=== PATIENT | male | born 1985 | race African-American/Black ===

== ENCOUNTER 2023-06-25 12:40 | Outpatient (CLI) | payer BC, SELFPAY | END 2023-06-25 12:41 | disposition home or self-care (01) | LOC: AMB 06-26 12:33 | PROVIDERS: Visit Provider Emergency Medicine | DX: I46.9 Cardiac arrest, cause unspecified (principal) | CPT/HCPCS: A0425; A0433 ==

== ENCOUNTER 2023-06-25 13:00 | Emergency (ER) | payer BC, SELFPAY ==
[2023-06-25] VITALS (52 sets, daily range): BP systolic 96–137; BP diastolic 66–90; PULSE 61–105; RESP 16; TEMP 36.2; O2SAT 94–100; BMI 21.5
--- NOTE | 2023-06-25 | CRLHL7_ITS ---
For Patients: As a result of the Cures Act, medical imaging exams and procedure reports are released immediately into your electronic medical record. You may view this report before your referring provider. If you have questions, please contact your health care provider. INDICATION: Cardiac arrest. TECHNIQUE: Chest 1 views. COMPARISON: None. FINDINGS: Cardiovasculature and mediastinum: Heart size and vasculature are normal in caliber and appearance. Lungs and pleural spaces: Lungs are clear. No sign of infiltrate or mass. No sign of pleural effusion. No pneumothorax. Bones and soft tissues: No significant findings. IMPRESSION: No acute or significant findings. Dictated by Richie Burgos MD @ 06/25/2023 2:46:50 PM (Electronically Signed)
[2023-06-25 13:21] LABS: Basophils Percent Auto 0.1 % (0.0-3.0); Eosinophils Percent Auto 0.6 % (0.0-7.0); Hemoglobin* 15.5 gm/dL (13.5-17.5); Immature Granulocytes Pct Auto 0.3 %; Lymphocytes Percent Auto 17.2 % (20-44); Mean Corpuscular HGB Conc 32 gm/dL (32-36); Mean Corpuscular Hemoglobin 32 pg (26-34); Mean Corpuscular Volume 98 fL (80-100); Monocytes Percent Auto 5.6 % (0.0-11.0); Neutrophils Percent Auto 76.2 % (42.0-72.0); Platelet Count* 467 K/uL (140-440); RDW Coefficient of Variation % 12.3 % (11.5-15.5); Red Blood Count 4.92 m/uL (4.30-5.90); White Blood Count* 13.48 K/uL (4.50-11.00)
[2023-06-25 13:22] LABS: Slide Review Reflex No
[2023-06-25] MEDS: 0.9 % SODIUM CHLORIDE 1000 ml 1,000 ML IV (13:29)
[2023-06-25 13:36] LABS: Albumin* 4.2 g/dL (3.3-5.0); Chloride* 101 mmol/L (96-114); Potassium* 3.9 mmol/L (3.6-5.1); Sodium* 139 mmol/L (135-149)
--- NOTE | 2023-06-25 13:37 | ED.NURSE ---
CPR performed in the field by EMS for approximately 4 minutes. Pt awake and alert upon arrival. A/O x 3 on arrival. Pt reporting chest pain in sternal area from CPR. 20G IV placed in right AC. VS stable on arrival. 1L via NC in place for oxygenation and comfort. Officer Scar attempted to speak to patient after initial assessments. Pt stated he was tired and didn't feel like talking. Brochure left in room by Officer Scar for patient to view when able to d/c. Pt denied taking drugs presently but stated he took one hit off of a smokable drug prior to being found down in his home. Per Officer Scar, pt is known to police for hx of drug use. Pt currently resting. This screen writer present in room for 1:1 assessment of need for additional Narcan administration.
[2023-06-25 13:38] LABS: Creatinine* 1.2 mg/dL (0.5-1.5); Est. Creatinine Clearance* 66.28; Estimated Glomerular Filt Rate 79 ml/min
[2023-06-25 13:39] LABS: Alanine Aminotransferase* 67 U/L (4-50); Alkaline Phosphatase* 68 U/L (40-150); Anion Gap 12 mEq/L (7-15); Aspartate Amino Transferase* 61 U/L (12-35); Bilirubin Total* 0.2 mg/dL (0.1-1.5); Blood Urea Nitrogen* 19 mg/dL (5-24); Calcium* 8.8 mg/dL (8.4-10.6); Carbon Dioxide* 26 mmol/L (20-32); Glucose* 233 mg/dL (60-115); Total Protein* 7.1 g/dL (6.0-8.3)
[2023-06-25 13:43] LABS: Salicylate* < 1.0 mg/dL (1.0-10)
[2023-06-25 13:56] LABS: Troponin I* < 0.01 ng/mL (0.01-0.04)
--- NOTE | 2023-06-25 14:41 | ED.NURSE ---
1:1 video monitoring continues to be in place. Pt resting comfortably at this time. 1L NS infused. VS continue to be stable. Pt calm and cooperative. Will continue to monitor and assess.
[2023-06-25 14:42] LABS: Lactate* 1.5 mmol/L (0.5-1.9)
[2023-06-25 14:48] LABS: Acetaminophen* < 10.0 ug/mL (10.0-30.0); Ethanol* < 0.01 % (0.01-0.03)
--- NOTE | 2023-06-25 14:50 | ED.GENADULT ---
HPI - General Adult General Date Seen: 06/25/23 Chief complaint: Cardiac Arrest/CPR Stated complaint: OD, cardiac arrest Time Seen by Provider: 06/25/23 13:08 Source: patient, EMS and old records reviewed Mode of arrival: EMS Limitations: altered mental status History of Present Illness HPI narrative: Patient is a 38-year-old male brought in by EMS after cardiac arrest related to suspected drug use. His brother called 911, and told paramedics that he thought he had used Heroin or fentanyl. He was given sequential doses of 1 mg of Narcan by paramedics. Estimated CPR time was 4 minutes, paramedics reported there was no recommended shock. After 3 doses of Narcan he resume breathing and CPR was discontinued. On arrival to the ER, medics said that he had refused IV, refused blood glucose testing, was awake and otherwise cooperative. Patient initially denied having use any drugs. He did tell me that he had ?taken a hit of something, but would not specify what. He does have a history he says remotely of heroin use but does not use it regularly. He did not believe that he had used any opioids today. He complains of chest pain. Related Data Home Medications Medication Instructions Recorded Confirmed No Known Home Medications 06/25/23 06/25/23 Allergies Allergy/AdvReac Type Severity Reaction Status Date / Time No Known Allergies Allergy Verified 01/16/22 08:28 Review of Systems Status of ROS: Reports: 10 or more systems reviewed and unremarkable except as noted in History and below [facility] Medical History Encounter for screening for COVID-19 ?Z11.52 - Encounter for screening for COVID-19 (ICD-10) Social History Smoking Status: Current every day smoker What tobacco products do you use: cigarettes Do you use any of these nicotine containing products: None Second hand tobacco smoke exposure: No How often do you have a drink containing alcohol: monthly or less AUDIT-C Alcohol total score: 1 Non-prescribed substance use: amphetamines/methamphetamines and opiods/painkillers service: No Exam Narrative: Exam Narrative: Vital signs as noted above. In general, an alert, nontoxic male. Head: Normocephalic, atraumatic. Eyes: Pupils are equal reactive. Extraocular movements are full. Conjunctivae are normal. ENT: Mucous membranes are moist. Throat is normal. Neck: Supple without lymphadenopathy. Heart: Regular rate and rhythm. No murmur or rub. Lungs: Clear bilaterally. No increased work of breathing, crackles or wheezes. Abdomen: Soft and nontender. No organomegaly. Extremities: Well perfused. No edema. No calf tenderness. Pulses intact. Neurologic: Patient is alert and oriented to person and place. Speech is fluent. Face is symmetric. Moves all extremities equally. Affect: Normal. Skin: Warm and dry. Well perfused. I do not see obvious track medina. Const: Vital Signs, click to edit/add: Vital Signs - 24 hr 06/25/23 13:08 06/25/23 13:14 06/25/23 13:32 Temperature 97.1 F L Pulse Rate Pulse Rate [Right Pulse Oximeter] 101 H Respiratory Rate 16 Blood Pressure Blood Pressure [Ri ght Upper Arm] 137/90 H Pulse Oximetry 97 94 Oxygen Delivery Me thod Room Air Oxygen Flow Rate 1 06/25/23 13:33 06/25/23 13:34 06/25/23 13:35 Temperature Pulse Rate 78 79 79 Pulse Rate [Right Pulse Oximeter] Respiratory Rate Blood Pressure 119/82 115/82 Blood Pressure [Ri ght Upper Arm] Pulse Oximetry 97 97 97 Oxygen Delivery Me thod Oxygen Flow Rate 06/25/23 13:36 06/25/23 13:40 06/25/23 13:41 Temperature Pulse Rate 77 81 79 Pulse Rate [Right Pulse Oximeter] Respiratory Rate Blood Pressure 114/80 Blood Pressure [Ri ght Upper Arm] Pulse Oximetry 97 97 97 Oxygen Delivery Me thod Oxygen Flow Rate 06/25/23 13:42 06/25/23 13:45 06/25/23 13:46 Temperature Pulse Rate 79 77 77 Pulse Rate [Right Pulse Oximeter] Respiratory Rate Blood Pressure 111/79 Blood Pressure [Ri ght Upper Arm] Pulse Oximetry 97 97 97 Oxygen Delivery Me thod Oxygen Flow Rate 06/25/23 13:50 06/25/23 13:51 06/25/23 13:55 Temperature Pulse Rate 76 105 H 73 Pulse Rate [Right Pulse Oximeter] Respiratory Rate Blood Pressure 111/78 Blood Pressure [Ri ght Upper Arm] Pulse Oximetry 97 96 97 Oxygen Delivery Me thod Oxygen Flow Rate 06/25/23 13:56 06/25/23 14:00 06/25/23 14:01 Temperature Pulse Rate 76 73 76 Pulse Rate [Right Pulse Oximeter] Respiratory Rate Blood Pressure 107/71 108/66 Blood Pressure [Ri ght Upper Arm] Pulse Oximetry 97 97 97 Oxygen Delivery Me thod Oxygen Flow Rate 06/25/23 14:05 06/25/23 14:06 06/25/23 14:10 Temperature Pulse Rate 69 72 70 Pulse Rate [Right Pulse Oximeter] Respiratory Rate Blood Pressure 102/70 Blood Pressure [Ri ght Upper Arm] Pulse Oximetry 100 100 99 Oxygen Delivery Me thod Oxygen Flow Rate 06/25/23 14:11 06/25/23 14:15 06/25/23 14:16 Temperature Pulse Rate 69 65 68 Pulse Rate [Right Pulse Oximeter] Respiratory Rate Blood Pressure 104/68 100/75 Blood Pressure [Ri ght Upper Arm] Pulse Oximetry 99 99 99 Oxygen Delivery Me thod Oxygen Flow Rate 06/25/23 14:17 06/25/23 14:20 06/25/23 14:21 Temperature Pulse Rate 68 71 73 Pulse Rate [Right Pulse Oximeter] Respiratory Rate Blood Pressure 101/72 Blood Pressure [Ri ght Upper Arm] Pulse Oximetry 99 98 98 Oxygen Delivery Me thod Oxygen Flow Rate 06/25/23 14:25 06/25/23 14:26 06/25/23 14:30 Temperature Pulse Rate 69 72 64 Pulse Rate [Right Pulse Oximeter] Respiratory Rate Blood Pressure 97/70 Blood Pressure [Ri ght Upper Arm] Pulse Oximetry 97 98 98 Oxygen Delivery Me thod Oxygen Flow Rate 06/25/23 14:31 06/25/23 14:35 06/25/23 14:36 Temperature Pulse Rate 64 64 68 Pulse Rate [Right Pulse Oximeter] Respiratory Rate Blood Pressure 104/70 104/72 Blood Pressure [Ri ght Upper Arm] Pulse Oximetry 99 98 98 Oxygen Delivery Me thod Oxygen Flow Rate 06/25/23 14:37 06/25/23 14:40 06/25/23 14:41 Temperature Pulse Rate 70 64 72 Pulse Rate [Right Pulse Oximeter] Respiratory Rate Blood Pressure 101/71 Blood Pressure [Ri ght Upper Arm] Pulse Oximetry 98 98 98 Oxygen Delivery Me thod Oxygen Flow Rate 06/25/23 14:46 06/25/23 14:47 06/25/23 14:50 Temperature Pulse Rate 77 67 64 Pulse Rate [Right Pulse Oximeter] Respiratory Rate Blood Pressure 104/74 Blood Pressure [Ri ght Upper Arm] Pulse Oximetry 97 97 97 Oxygen Delivery Me thod Oxygen Flow Rate 06/25/23 14:51 06/25/23 14:55 06/25/23 14:56 Temperature Pulse Rate 62 62 66 Pulse Rate [Right Pulse Oximeter] Respiratory Rate Blood Pressure 96/68 101/70 Blood Pressure [Ri ght Upper Arm] Pulse Oximetry 97 97 97 Oxygen Delivery Me thod Oxygen Flow Rate 06/25/23 15:00 06/25/23 15:01 06/25/23 15:05 Temperature Pulse Rate 69 64 63 Pulse Rate [Right Pulse Oximeter] Respiratory Rate Blood Pressure 100/74 Blood Pressure [Ri ght Upper Arm] Pulse Oximetry 97 97 97 Oxygen Delivery Me thod Oxygen Flow Rate 06/25/23 15:06 06/25/23 15:07 06/25/23 15:10 Temperature Pulse Rate 61 64 64 Pulse Rate [Right Pulse Oximeter] Respiratory Rate Blood Pressure 99/66 Blood Pressure [Ri ght Upper Arm] Pulse Oximetry 97 97 97 Oxygen Delivery Me thod Oxygen Flow Rate 06/25/23 15:11 06/25/23 15:15 06/25/23 15:16 Temperature Pulse Rate 73 69 69 Pulse Rate [Right Pulse Oximeter] Respiratory Rate Blood Pressure 100/69 97/68 Blood Pressure [Ri ght Upper Arm] Pulse Oximetry 97 97 97 Oxygen Delivery Me thod Oxygen Flow Rate 06/25/23 15:20 06/25/23 15:21 Temperature Pulse Rate 67 70 Pulse Rate [Right Pulse Oximeter] Respiratory Rate Blood Pressure 99/71 Blood Pressure [Ri ght Upper Arm] Pulse Oximetry 97 97 Oxygen Delivery Me thod Oxygen Flow Rate Course Course ED Course: Following initial evaluation, patient was maintained on monitor and oximetry. An EKG showed a sinus rhythm and ventricular rate of 93, corrected QT of 494 milliseconds. No ectopy or arrhythmia on the monitor while he was here. He was watched closely but did not require further Narcan. His labs showed mildly elevated white blood cell count of 13.5, likely demargination. Metabolic panel is unremarkable, blood sugar is elevated at 233. Lactate is 1.5. LFTs are unremarkable aside from mild transaminase elevations of 61 and 67. Troponin is less than 0.01. Tylenol alcohol and aspirin levels are all negative. Patient has been asymptomatic since arrival. We watched him for over 3 hours post Narcan. He is alert and cooperative. I have given him a prescription for Narcan. He is not interested in drug treatment, he says he does not use drugs. Vital Signs Vital signs: Initial Vital Signs Pulse Oximetry 97 06/25/23 13:08 Vital Signs Pulse Oximetry 97 06/25/23 13:08 Temperature 97.1 F L 06/25/23 13:14 Pulse Rate 70 06/25/23 15:21 Respiratory Rate 16 06/25/23 13:14 Blood Pressure 99/71 06/25/23 15:21 Pulse Oximetry 97 06/25/23 15:21 Oxygen Delivery Method Room Air 06/25/23 13:14 Oxygen Flow Rate 1 06/25/23 13:32 Medications Administered Medications: Discontinued Medications Generic Name Dose Route Start Last Admin Trade Name Freq PRN Reason Stop Dose Admin Sodium Chloride 1,000 mls @ 1,000 mls/hr 06/25/23 13:15 06/25/23 14:00 0.9 % Sodium Chloride 1000 Ml IV 06/25/23 14:14 Infused .Q1H BENNIE Infusion Medical Decision Making Lab Data Labs: Lab Results 06/25/23 06/25/23 Range/Units 13:06 14:36 WBC 13.48 H (4.50-11.00) K/uL RBC 4.92 (4.30-5.90) m/uL Hgb 15.5 (13.5-17.5) gm/dL Hct 48.0 (37.0-53.0) % MCV 98 (80-100) fL MCH 32 (26-34) pg MCHC 32 (32-36) gm/dL RDW Coeff of Birdie 12.3 (11.5-15.5) % Plt Count 467 H (140-440) K/uL Neut % (Auto) 76.2 H (42.0-72.0) % Lymph % (Auto) 17.2 L (20-44) % [place] % (Auto) 5.6 (0.0-11.0) % Eos % (Auto) 0.6 (0.0-7.0) % Baso % (Auto) 0.1 (0.0-3.0) % Neut # (Auto) 10.30 H (1.7-7.0) K/uL Lymph # (Auto) 2.30 (0.90-2.90) K/uL [place] # (Auto) 0.80 (0.00-0.90) K/UL Eos # (Auto) 0.10 (0.00-0.50) K/uL Baso # (Auto) 0.00 (0.00-0.30) K/uL Abs Immat Gran (auto) 0.00 (0.00-0.30) K/uL Imm/Tot Granulo (auto) 0.3 % Sodium 139 (135-149) mmol/L Potassium 3.9 (3.6-5.1) mmol/L Chloride 101 (96-114) mmol/L Carbon Dioxide 26 (20-32) mmol/L Anion Gap 12 (7-15) mEq/L BUN 19 (5-24) mg/dL Creatinine 1.2 (0.5-1.5) mg/dL Estimated Creat Clear 66.28 Estimated GFR 79 ml/min Glucose 233 H (60-115) mg/dL Lactate 1.5 (0.5-1.9) mmol/L Calcium 8.8 (8.4-10.6) mg/dL Total Bilirubin 0.2 (0.1-1.5) mg/dL Direct Bilirubin 0.0 (0.0-0.5) mg/dL AST 61 H (12-35) U/L ALT 67 H (4-50) U/L Alkaline Phosphatase 68 (40-150) U/L Troponin I < 0.01 L (0.01-0.04) ng/mL Total Protein 7.1 (6.0-8.3) g/dL Albumin 4.2 (3.3-5.0) g/dL Salicylates < 1.0 L (1.0-10) mg/dL Acetaminophen < 10.0 L (10.0-30.0) ug/mL Ethyl Alcohol < 0.01 L (0.01-0.03) % Discharge Plan Discharge Clinical Impression: Accidental drug overdose Patient Disposition: Home, Self-Care Condition: Improved Instructions: Adult Overdose (ED) Additional Instructions: Recommend having Narcan as backup in the future. Prescriptions: No Action No Known Home Medications Follow Up/Referrals: Provider,Not a Local [Primary Care Provider] - Stand Alone Forms: [facility] Medical Info Instructions
--- NOTE | 2023-06-25 16:03 | ED.NURSE ---
Removed L bui IO. Bleeding controlled. Bandage applied, Pt tolerated well.
== END 2023-06-25 16:06 | disposition home or self-care (01) ==
PROVIDERS: Emergency Provider Emergency Medicine
DX: T65.91XA Toxic effect of unspecified substance, accidental (unintentional), initial encounter (principal); I46.8 Cardiac arrest due to other underlying condition
CPT/HCPCS: 36415; 71045; 80048; 80076; 80143; 80179; 80306; 82077; 83605; 84484; 85025; 94761; 95992; 96372; 99284; 99291; J7030

== ENCOUNTER 2023-07-06 15:50 | Outpatient (CLI) | payer BC, SELFPAY | END 2023-07-06 15:51 | disposition home or self-care (01) | PROVIDERS: Visit Provider Emergency Medicine Emergency Medical Services | DX: R41.82 Altered mental status, unspecified (principal); F19.10 Other psychoactive substance abuse, uncomplicated | CPT/HCPCS: A0425; A0427 ==

== ENCOUNTER 2023-07-06 16:23 | Emergency (ER) | payer BC, SELFPAY ==
[2023-07-06] VITALS (10 sets, daily range): BP systolic 92–139; BP diastolic 65–99; PULSE 81–115; RESP 16; TEMP 36.4; O2SAT 95–98; BMI 21.5
--- NOTE | 2023-07-06 17:50 | ED.GENADULT ---
HPI - General Adult General Date Seen: 07/06/23 Chief complaint: Altered Mental Status Stated complaint: possible OD Time Seen by Provider: 07/06/23 16:26 Source: patient and EMS Mode of arrival: EMS Limitations: no limitations History of Present Illness HPI narrative: Patient is a 38-year-old male presenting to the emergency department via EMS for an apparent overdose. EMS and police were called to his home by his the patient's brother. They state the brother thought he overdosed and did 1 hurt to chest compressions and the patient woke up immediately. By time EMS arrived the states he seemed a little groggy but was acting otherwise normal. He had normal vital signs and has been fully cooperative with them. Patient states he was cleaning out his dads trailer when he found what looked like meth and he smoked it. He then states that tasted like meth and he was pretty sure it was meth. Then felt tired and laid down to rest. Next thing he knew the police were there. Denies lightheadedness, chest pain, shortness of breath, dizziness, fevers, could chills, weakness, numbness, vision changes, diarrhea, constipation. States he feels asymptomatic at this time Related Data Home Medications Medication Instructions Recorded Confirmed No Known Home Medications 06/25/23 07/06/23 Allergies Allergy/AdvReac Type Severity Reaction Status Date / Time No Known Allergies Allergy Verified 07/06/23 16:38 Review of Systems Status of ROS: Reports: 10 or more systems reviewed and unremarkable except as noted in History and below [facility] Medical History Encounter for screening for COVID-19 ?Z11.52 - Encounter for screening for COVID-19 (ICD-10) Social History Smoking Status: Current every day smoker What tobacco products do you use: cigarettes Do you use any of these nicotine containing products: None Second hand tobacco smoke exposure: No How often do you have a drink containing alcohol: monthly or less AUDIT-C Alcohol total score: 1 Non-prescribed substance use: amphetamines/methamphetamines and opiods/painkillers service: No Exam Narrative: Exam Narrative: Const: Well-nourished, Well-developed, in no distress Eyes: PERRL, no conjunctival injection, and symmetrical lids HENT: Atraumatic external nose and ears. Moist mucous membranes. Neck: Symmetric, trachea midline, No thyromegaly. CVS: RRR, No murmurs or gallops. Peripheral pulses 2+ and equal in all extremities RESP: Unlabored respiratory effort. Clear to auscultation bilaterally. GI: Nontender/Nondistended, No rebound or guarding. MSK:Extremities w/o deformity, Normal Active ROM Skin: Warm, Dry. No rashes or lesions. Neuro: Normal Muscle tone, No focal neurological deficits. Psych: Awake, Alert, & Oriented x3. Appropriate mood and affect. Const: Vital Signs, click to edit/add: Vital Signs - 24 hr 07/06/23 16:33 07/06/23 16:39 07/06/23 16:45 Temperature 97.6 F Pulse Rate 115 H 99 Pulse Rate [Left P ulse Oximeter] 98 Respiratory Rate 16 Blood Pressure Blood Pressure [Ri ght Upper Arm] 138/99 H Pulse Oximetry 98 98 95 Oxygen Delivery Me thod Room Air 07/06/23 17:00 07/06/23 17:03 07/06/23 17:04 Temperature Pulse Rate 108 H 97 107 H Pulse Rate [Left P ulse Oximeter] Respiratory Rate Blood Pressure 92/65 Blood Pressure [Ri ght Upper Arm] Pulse Oximetry 97 97 96 Oxygen Delivery Me thod 07/06/23 17:15 07/06/23 17:34 07/06/23 17:36 Temperature Pulse Rate 81 81 Pulse Rate [Left P ulse Oximeter] Respiratory Rate Blood Pressure 139/83 Blood Pressure [Ri ght Upper Arm] Pulse Oximetry 98 98 Oxygen Delivery Me thod 07/06/23 17:45 Temperature Pulse Rate 84 Pulse Rate [Left P ulse Oximeter] Respiratory Rate Blood Pressure Blood Pressure [Ri ght Upper Arm] Pulse Oximetry 96 Oxygen Delivery Me thod Course Vital Signs Vital signs: Initial Vital Signs Temperature 97.6 F 07/06/23 16:33 Temperature Source Temporal Artery Scan 07/06/23 16:33 Pulse Rate 98 07/06/23 16:33 Respiratory Rate 16 07/06/23 16:33 Blood Pressure 138/99 H 07/06/23 16:33 Blood Pressure Mean 112 H 07/06/23 16:33 Blood Pressure Position Sitting 07/06/23 16:33 Pulse Oximetry 98 07/06/23 16:33 Oxygen Delivery Method Room Air 07/06/23 16:33 Vital Signs Temperature 97.6 F 07/06/23 16:33 Pulse Rate 98 07/06/23 16:33 Respiratory Rate 16 07/06/23 16:33 Blood Pressure 138/99 H 07/06/23 16:33 Pulse Oximetry 98 07/06/23 16:33 Oxygen Delivery Method Room Air 07/06/23 16:33 Temperature 97.6 F 07/06/23 16:33 Pulse Rate 84 07/06/23 17:45 Respiratory Rate 16 07/06/23 16:33 Blood Pressure 139/83 07/06/23 17:34 Pulse Oximetry 96 07/06/23 17:45 Oxygen Delivery Method Room Air 07/06/23 16:33 Medical Decision Making MDM Narrative Medical decision making narrative: Patient is a 38-year-old male presenting for possible overdose. He is states he was smoking meth and then fell asleep. No Narcan has been given. In the emergency department he had but they does signs that were stable and non concerning. He is not having any symptoms at this time. We did do an EKG which showed no concerning findings. We monitored him in the emergency department and he had no abnormalities and was safely discharged home. He was agreeable with this plan. ECG Data Attestation: I personally reviewed and interpreted this ECG as follows: Prior ECG tracings: available for review Interpretation: Normal sinus rhythm with a rate of 89 beats per minute, normal intervals, normal axis, no ST or T-wave abnormalities appears similar to previous EKG of bile Discharge Plan Discharge Clinical Impression: Accidental drug overdose Qualifiers: Encounter type: initial encounter Qualified Code(s): T50.901A - Poisoning by unspecified drugs, medicaments and biological substances, accidental (unintentional), initial encounter Patient Disposition: Home, Self-Care Condition: Stable Instructions: Adult Overdose (ED) Additional Instructions: Return to emergency department for new worsening symptoms Prescriptions: No Action No Known Home Medications Follow Up/Referrals: Provider,Not a Local [Primary Care Provider] - Stand Alone Forms: [employer] [facility] Info Instructions
== END 2023-07-06 17:58 | disposition home or self-care (01) ==
PROVIDERS: Emergency Provider Student in an Organized Health Care Education/Training Program
DX: T50.901A Poisoning by unspecified drugs, medicaments and biological substances, accidental (unintentional), initial encounter (principal)
CPT/HCPCS: 99282; 99283

== ENCOUNTER 2025-01-16 11:10 | Emergency (ER) | payer MEDICAID, SELFPAY ==
--- OUTSIDE RECORDS SUMMARY | 2020-10-14 14:17 | XMS_ITS | Continuity of Care Document ---
Author Organization [facility] Address [address] [place] [address] Care Team Providers Care Hostage Negotiator Name Role Phone Unavailable Unavailable Unavailable Advance Directives Directive Yes / No Effective Date File Name No Information Encounters Encounter Description Practice Location Reason(s) For Visit Diagnoses Date Provider Providers Copied on Encounter [facility] , [address] [place], [place], [phone], [facility] No Information No Information Family History Family [...]
--- OUTSIDE RECORDS SUMMARY | 2020-10-14 14:17 | XMS_ITS | Continuity of Care Document ---
Author Organization [facility] Address [address] [place] [address] Care Team Providers Care Agricultural Adviser Name Role Phone Unavailable Unavailable Unavailable Advance Directives Directive Yes / No Effective Date File Name No Information Encounters Encounter Description Practice Location Reason(s) For Visit Diagnoses Date Provider Providers Copied on Encounter [facility] , [address] [place], [place], [phone], [facility] No Information No Information Family History Family Member Type Diagnosis Age At Onset No Information Payers Payer name Insurance type Covered republican ID Authoriza tion(s) No Information Social History [...]
--- OUTSIDE RECORDS SUMMARY | 2025-01-16 11:12 | XMS_ITS | Clinical Summary ---
Author Organization [facility] Address [address] [place] [id number] Care Team Providers Care Delimer Name Role Phone Jose Persaud MD Primary Care Provider Allergies No known active allergies Medications No known medications Active Problems Problem Noted Date Diagnosed Date Substance abuse in remission 10/29/2019 Anxiety state, unspecified 05/28/2009 Family History Medical History Relation Name Comments Unknown Brother 2 anxiety Good Health Brother 3 Beka Good Health Brother 4 Tonio Alcohol/Drug Father Inpatient CD tr eatment Diabetes Father Good Health Mother Diabetes Paternal Grandmother Good Health Sister Liana Relation Name Status Comments Brother 1 Alive Brother 2 Brother 3 Beka Brother 4 Tonio Father Alive Mother Alive Paternal Grandmother Sister Liana Social History Tobacco Use Types Packs/Day Years Used Date Smoking Tobacco: Former Cigarettes Q uit: 10/2020 Smokeless Tobacco: Never Tobacco Cessation:Counseling Given: No Comments:1/2 pack per day. Alcohol Use Standard Drinks/Week Comments Not Currently 0 (1 standard drink = 0.6 oz pur e alcohol) Rare; once per month. PHQ-2 Answer Date Recorded PHQ-2 TOTAL SCORE 0 10/26/2023 Social Connections Answer Date Recorded Do you often feel lonely or isolated from those around you? 0 10/26/2023 Financial Resource Strain Answer Date R ecorded Difficulty of Paying Living Expenses 1 10/26/2023 Difficulty of Paying Living Expenses 2 10/26/2023 Food Insecurity Answer Date Recorded Do you worry your food will run out before you are able to buy more? 1 10/26/2023 Transportation Needs Answer Date Record ed Does lack of transportation keep you from medica l appointments? 1 10/26/2023 Does lack of transportation keep you from work, meetings or getting things that you need? 2 10/26/2023 Housing Stability Answer Date Recorded What is your housing situation today? 1 10/26/2023 Utilities Answer Date Recorded Do you have trouble paying f or utilities (for example, heat, electricity, water, phone)? 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 Gender Identity Not on file Sexual Orientation Not on file Occupation Industry Job Start Date Job End Date Not on file Not on file Not on file Not on file Obstetrics History Last Filed Vital Signs Vital Sign Reading Time Taken Comments Blood Pressure 137/46 10/26/2023 2:29 PM CDT Pulse 93 10/26/2023 2:29 PM CDT Temperature 37.7 C (99.8 F) 11/22/2022 8:16 PM CDT Respiratory Rate 16 11/22/2022 8:16 PM CDT Oxygen Saturation 99% 10/26/2023 2:29 PM CDT Inhaled Oxygen Concentration - - Weight 69.9 kg (154 lb) 10/26/2023 2:29 PM CDT Height 179.1 cm (5' 10.5) 11/22/2022 7:54 PM CD T Body Mass Index 21.78 11/22/2022 7:54 PM CDT Plan of Treatment Health Maintenance Due Date Last Done Comments Tetanus booster 1995 HIV for age 15-65 1999 Hepatitis C screening for age 18-79 2002 Hepatitis B series for 19+ (1 of 3 - 19+ 3-dose series) 2003 Lipids for age 35-44 2019 BMI (ht and wt on same day) for age 18+ 04/12/2022 04/12/2021 COVID-19 vaccine series ( season) 2024 05/10/2023 Depression screening for age 12+ 10/25/2024 10/26/2023, 04/12/2021, 11/26/2019, Additional history exists Influenza Vaccine (#1) 2025 Pneumococcal series for age 6-49 Aged Out No longer eligible based on patient's age to complete this topic Insurance [employer] x5 (Work) ATTN: ACCTS PAYABLE [address] [address] [place] [address] Care Teams Delimer Relationship Specialty Start Date End Date Jose Persaud MD [address] [place] [address] PCP - General Family Practice 02/12/21
[2025-01-16 11:24] VITALS: BP 120/82; PULSE 105; RESP 18; TEMP 36.9; O2SAT 95; BMI 19.2
--- NOTE | 2025-01-16 11:39 | CRLHL7_ITS ---
For Patients: As a result of the Cures Act, medical imaging exams and procedure reports are released immediately into your electronic medical record. You may view this report before your referring provider. If you have questions, please contact your health care provider. Indication: UPPER BACK AND NECK PAIN Technique: Two views of the thoracic spine Comparison: None Findings/Impression: No acute fracture or malalignment. No scoliotic curvature. Normal thoracic kyphosis is maintained. No significant spondylitic changes. No suspicious osseous lesions. The soft tissues are unremarkable. Dictated by Lebron Sabillon MD @ 01/16/2025 12:46:03 PM (Electronically Signed)
--- NOTE | 2025-01-16 11:40 | CRLHL7_ITS ---
For Patients: As a result of the Century Cures Act, medical imaging exams and procedure reports are released immediately into your electronic medical record. You may view this report before your referring provider. If you have questions, please contact your health care provider. INDICATION: Upper back and neck pain COMPARISON: None. TECHNIQUE: 1 view chest radiograph. FINDINGS: Devices: None. Lung volumes are good. No focal or diffuse opacities. No pulmonary edema. No pleural effusion. No pneumothorax. No pneumomediastinum. Heart size is normal. Bones: Normal. No acute findings. IMPRESSION: Normal chest radiograph. Dictated by Eulalia Minaya MD @ 01/16/2025 12:34:18 PM (Electronically Signed)
[2025-01-16] MEDS: KETOROLAC 10 MG TABLET PO (11:48)
[2025-01-16 12:04] LABS: Hematocrit 48.0 % (37.0-53.0); Hemoglobin* 15.8 gm/dL (13.5-17.5); Immature Granulocytes Abs Auto 0.00 K/uL (0.00-0.30); Immature Granulocytes Pct Auto 0.0 %; Lymphocytes Absolute Auto 1.39 K/uL (0.90-2.90); Mean Corpuscular HGB Conc 33 gm/dL (32-36); Mean Corpuscular Hemoglobin 32 pg (26-34); Mean Corpuscular Volume 96 fL (80-100); RDW Coefficient of Variation % 11.7 % (11.5-15.5); Red Blood Count 5.01 m/uL (4.30-5.90); White Blood Count* 6.64 K/uL (4.50-11.00)
[2025-01-16 12:10] LABS: Slide Review Reflex No
[2025-01-16 12:16] LABS: Chloride* 104 mmol/L (96-114); Sodium* 140 mmol/L (135-149)
[2025-01-16 12:17] LABS: Potassium* 3.8 mmol/L (3.6-5.1)
--- NOTE | 2025-01-16 12:18 | ED.GENADULT ---
HPI - General Adult General Chief complaint: Back Injury/Pain Stated complaint: upper back and center pain Time Seen by Provider: 01/16/25 11:13 History of Present Illness HPI narrative: 39-year-old male with a 2 couple year history of back pain. He denies specific trauma. He wrote reports that it has been worse lately. Describes it is interscapular and occasionally goes lower in his thoracolumbar area. Seems to be worse with activity. Seems to bother him pretty regularly now. Patient otherwise reports he has been good state of health recently. He does report he does occasional methamphetamine. He has never used IV drugs. He has had no fever chills weight loss night sweats. He does not really have localized pain that you would see with perhaps diskitis. No radicular symptoms. No weight loss. He would like to get been better general condition feels like he has lost strength in his core. Related Data Previous Rx's ?Medication ?Instructions ?Recorded ketorolac 10 mg tablet 10 mg PO Q8H PRN pain 3 days #10 01/16/25 tabs prednisone 20 mg tablet 20 mg PO BID #10 tabs 01/16/25 Allergies Allergy/AdvReac Type Severity Reaction Status Date / Time No Known Allergies Allergy Verified 01/16/25 11:24 Review of Systems Status of ROS: Reports: 6 or more systems reviewed and unremarkable except as noted in History and below [facility] Medical History Encounter for screening for COVID-19 ?Z11.52 - Encounter for screening for COVID-19 (ICD-10) Social History Smoking Status: Current every day smoker What tobacco products do you use: cigarettes Do you use any of these nicotine containing products: None Second hand tobacco smoke exposure: No How often do you have a drink containing alcohol: monthly or less AUDIT-C Alcohol total score: 1 Non-prescribed substance use: denies use service: No Exam Narrative: Exam Narrative: Objective: Patient's vital signs are within normal limits, afebrile Alert orient x3 pleasant Mild paravertebral muscle tenderness in his thoracolumbar spine mid interscapular area down to his upper lumbar area. Most localized along his paravertebral muscles in his thoracic spine. Does not appear to have scoliosis, and he denies any radicular symptoms. He has had no weakness in his arms or legs. He ambulates normally. Const: Vital Signs, click to edit/add: Vital Signs - 24 hr 01/16/25 11:24 Temperature 98.4 F Pulse Rate [Pulse Oximeter] 105 H Respiratory Rate 18 Blood Pressure [Ri ght Upper Arm] 120/82 Pulse Oximetry 95 Oxygen Delivery Me thod Room Air Course Vital Signs Vital signs: Initial Vital Signs Temperature 98.4 F 01/16/25 11:24 Temperature Source Temporal Artery Scan 01/16/25 11:24 Pulse Rate 105 H 01/16/25 11:24 Respiratory Rate 18 01/16/25 11:24 Blood Pressure 120/82 01/16/25 11:24 Blood Pressure Mean 94 01/16/25 11:24 Pulse Oximetry 95 01/16/25 11:24 Oxygen Delivery Method Room Air 01/16/25 11:24 Vital Signs Temperature 98.4 F 01/16/25 11:24 Pulse Rate 105 H 01/16/25 11:24 Respiratory Rate 18 01/16/25 11:24 Blood Pressure 120/82 01/16/25 11:24 Pulse Oximetry 95 01/16/25 11:24 Oxygen Delivery Method Room Air 01/16/25 11:24 Temperature 98.4 F 01/16/25 11:24 Pulse Rate 105 H 01/16/25 11:24 Respiratory Rate 18 01/16/25 11:24 Blood Pressure 120/82 01/16/25 11:24 Pulse Oximetry 95 01/16/25 11:24 Oxygen Delivery Method Room Air 01/16/25 11:24 Medications Administered Medications: Discontinued Medications Generic Name Dose Route Start Last Admin Trade Name Freq PRN Reason Stop Dose Admin Ketorolac Tromethamine 10 mg 01/16/25 11:39 01/16/25 11:48 Ketorolac 10 Mg Tablet PO 01/16/25 11:40 10 mg ONCE ONE Administration Prednisone 50 mg 01/16/25 11:39 01/16/25 11:47 Prednisone 10 Mg Tablet PO 01/16/25 11:40 50 mg ONCE ONE Administration Medical Decision Making MDM Narrative Medical decision making narrative: 39-year-old male with chronic thoracic thoracolumbar back pain primarily thoracic. At this point x-rays were taken and by my review his thoracic x-rays show perhaps mild Scheuermann's phenomenon with some just mild kyphosis. His chest x-ray looks unremarkable. His laboratory studies show normal white count hemoglobin. His ER profile is pending at this point. I would like to do the following: I am going to give him prednisone 20 mg b.i.d. starting tomorrow for 5 days given 50 mg today, would give him Toradol 10 mg t.i.d. to use p.r.n. over the next several days. I am going to make an order for physical therapy 2 times a week for the next 4 weeks to do core strengthening and thoracic treatments. He should aggressively work on core strengthening at home. Recommend stop any illicit drug use. Recheck with primary care in the next 3-5 days for reassessment. He was comfortable plan. He felt most happy about doing physical therapy. Blood sugar was noted to be little high at 175 nonfasting, and recommend recheck this with his primary care doctor. Lab Data Labs: Lab Results 01/16/25 Range/Units 11:50 WBC 6.64 (4.50-11.00) K/uL RBC 5.01 (4.30-5.90) m/uL Hgb 15.8 (13.5-17.5) gm/dL Hct 48.0 (37.0-53.0) % MCV 96 (80-100) fL MCH 32 (26-34) pg MCHC 33 (32-36) gm/dL RDW Coeff of Birdie 11.7 (11.5-15.5) % Plt Count 314 (140-440) K/uL Neut % (Auto) 69.0 (42.0-72.0) % Lymph % (Auto) 20.9 (20-44) % [place] % (Auto) 7.8 (0.0-11.0) % Eos % (Auto) 2.0 (0.0-7.0) % Baso % (Auto) 0.3 (0.0-3.0) % Neut # (Auto) 4.58 (1.7-7.0) K/uL Lymph # (Auto) 1.39 (0.90-2.90) K/uL [place] # (Auto) 0.50 (0.00-0.90) K/UL Eos # (Auto) 0.13 (0.00-0.50) K/uL Baso # (Auto) 0.02 (0.00-0.30) K/uL Abs Immat Gran (auto) 0.00 (0.00-0.30) K/uL Imm/Tot Granulo (auto) 0.0 % Sodium 140 (135-149) mmol/L Potassium 3.8 (3.6-5.1) mmol/L Chloride 104 (96-114) mmol/L Carbon Dioxide 26 (20-32) mmol/L Anion Gap 10 (7-15) mEq/L BUN 18 (5-24) mg/dL Creatinine 1.1 (0.5-1.5) mg/dL Estimated Creat Clear 76.74 Estimated GFR 87 ml/min Glucose 175 H (60-115) mg/dL Calcium 9.5 (8.4-10.6) mg/dL C-Reactive Protein < 0.5 L (0.5-1.0) mg/dL Discharge Plan Discharge Clinical Impression: Chronic thoracic back pain, Hyperglycemia Patient Disposition: Home, Self-Care Condition: Stable Additional Instructions: Physical therapy will be arranged for you, Toradol and prednisone as prescribed, light activity, ice to her back 10-15 minutes 2 to 3 times a day P can do that. Recheck with your primary care doctor in the next 2-3 days. Recommend you talk to her doctor about her elevated blood sugar as well. Physical therapy will be reaching out to schedule on-going treatment. [facility] . Activity Level: Light activity Discharge Diet: Regular Prescriptions: New prednisone 20 mg tablet 20 mg PO BID Qty: 10 0RF ketorolac 10 mg tablet 10 mg PO Q8H PRN (Reason: pain) 3 Days Qty: 10 0RF Follow Up/Referrals: Provider,Not a Local [Non-Staff, Family Practice] Stand Alone Forms: [facility] Info Instructions
[2025-01-16 12:19] LABS: Blood Urea Nitrogen* 18 mg/dL (5-24); Creatinine* 1.1 mg/dL (0.5-1.5); Est. Creatinine Clearance* 76.74; Estimated Glomerular Filt Rate 87 ml/min
[2025-01-16 12:20] LABS: Anion Gap 10 mEq/L (7-15); Calcium* 9.5 mg/dL (8.4-10.6); Carbon Dioxide* 26 mmol/L (20-32); Glucose* 175 mg/dL (60-115)
== END 2025-01-16 12:40 | disposition home or self-care (01) ==
LOC: ED 11:57
PROVIDERS: Emergency Provider Family Medicine; PCP Family Medicine
DX: M54.6 Pain in thoracic spine (principal); R73.9 Hyperglycemia, unspecified
CPT/HCPCS: 36415; 71045; 72070; 80048; 85025; 86140; 99284; A9270; J7512

== ENCOUNTER 2025-01-19 12:52 | Emergency (ER) | payer MEDICAID, SELFPAY ==
--- OUTSIDE RECORDS SUMMARY | 2020-10-14 14:17 | XMS_ITS | Continuity of Care Document ---
Author Organization [facility] Address [address] [place] [address] Care Team Providers Care Mobile Mechanic Name Role Phone Unavailable Unavailable Unavailable Advance Directives Directive Yes / No Effective Date File Name No Information Encounters Encounter Description Practice Location Reason(s) For Visit Diagnoses Date Provider Providers Copied on Encounter [facility] , [address] [place], [place], [phone], [facility] No Information No Information Family History Family Member Type Diagnosis Age At Onset No Information Payers Payer name Insurance type Covered green party ID Authoriza tion(s) No Information Social History Type Description Quantity Date Captured Comments Alcohol Use Details Unknown Caffeine Use Details Unknown Tobacco Use Status No Information Smoking Status No Information Sex Male Chief Complaint And Reason For Visit No Information Reason For Referral Reason For Referral No Information History Of Present Illness Encounter Date Complaint History Of Prese nt Illness No Information Functional Status Date Functional Assessmen t No Information Instructions Date Instruction Additional Infor mation No Information Assessments Type Assessment Date No Information Patient Care Teams Name Effective Dates (start - stop) Status Members No Information
--- OUTSIDE RECORDS SUMMARY | 2020-10-14 14:17 | XMS_ITS | Continuity of Care Document ---
Author Organization [facility] Address [address] [place] [address] Care Team Providers Care Dental Hygienist Name Role Phone Unavailable Unavailable Unavailable Advance Directives Directive Yes / No Effective Date File Name No Information Encounters Encounter Description Practice Location Reason(s) For Visit Diagnoses Date Provider Providers Copied on Encounter [facility] , [address] [place], [place], [phone], [facility] No Information No Information Family History Family Member Type Diagnosis Age At Onset No Information Payers Payer name Insurance type Covered democrat ID Authoriza tion(s) No Information Social History [...]
--- OUTSIDE RECORDS SUMMARY | 2025-01-19 12:54 | XMS_ITS | Clinical Summary ---
Author Organization [facility] Address [address] [place] [id number] Care Team Providers Care Feeder Catcher Name Role Phone Jose Persaud MD Primary Care Provider Allergies No known active allergies Medications No known medications Active Problems Problem Noted Date Diagnosed Date Substance abuse in remission 10/29/2019 Anxiety state, unspecified 05/28/2009 Encounters Date Type Department Care Team Description 01/16/2025 Orders Only [facility] Scanner 1 scan: (1-Ord) [facility], XR THORACIC SPINE 2V, 01/16/2025 01/16/2025 Orders Only [facility] Scanner 1 scan: (1-Ord) [facility], XR CHEST 1V, 01/16/2025 from Last 3 Months Family History Medical History Relation Name Comments [...] on file 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 Anatomical Region Laterality Modality Other us Scanner OTHER Final Result from Last 3 Months Insurance [employer] [facility] x5 (Work) ATTN: ACCTS PAYABLE [address] [address] [place] [address] Care Teams Feeder Catcher Relationship Specialty Start Date End Date Jose Persaud MD [address] [place] [address] PCP - General Family Practice 02/12/21
[2025-01-19 13:08] VITALS: BP 128/81; PULSE 102; RESP 20; TEMP 36.3; O2SAT 98; BMI 19.1
--- NOTE | 2025-01-19 13:23 | ED.BACK ---
HPI - Back Pain/Injury General Time Seen by Provider: 13:23 Date Seen: 01/19/25 Chief Complaint: Back Injury/Pain Stated Complaint: Back pain Time Seen by Provider: 01/19/25 13:22 Source: patient, RN notes reviewed and old records reviewed Mode of arrival: ambulatory Limitations: no limitations History of Present Illness HPI Narrative: Thom is a 39-year-old male with history of chronic back pain, recent visit to the ED on prednisone, history of polysubstance and methamphetamine abuse who comes to the emergency room for evaluation regarding continued back pain although improved today as well as muscular wasting. Thom states that he has had back pain for many years. He was started on prednisone on SundayJanuary 16 and was supposed to follow-up with PT and establish with primary care. States he has not yet heard from physical therapy and he has not yet established with primary care. He notes that his pain is actually better today but is wondering if there is anything else that can be done for. He seems to be more concerned about what he describes as wasting of his body. Notes that he is vigilant upon working out and that recently he feels like he is seeing that his muscles are shrinking and that he has stretch medina on his arms and that it looks like his legs are smaller than normal. He states that he tries to watch his diet and initially describes curtailing his food intake but upon a later conversation describes how he is very careful with supplements and has been having adequate calories. He notes that when he has back pain he has pain in his forehead and that his eyes seemed to be holding the rest of his head up. He does endorse methamphetamine abuse but states that he has been taking that because of the pain and he knows he should not do that. He denies any alcohol use. He denies any recent trauma. Related Data Previous Rx's ?Medication ?Instructions ?Recorded ketorolac 10 mg tablet 10 mg PO Q8H PRN pain 3 days #10 01/16/25 tabs prednisone 20 mg tablet 20 mg PO BID #10 tabs 01/16/25 Allergies Allergy/AdvReac Type Severity Reaction Status Date / Time No Known Allergies Allergy Verified 01/19/25 13:06 Review of Systems Status of ROS: Reports: 6 or more systems reviewed and unremarkable except as noted in History and below Const: Reports: fatigue; Denies: fever or chills ENMT: Denies: neck pain or nasal congestion Cardio: Denies: chest pain, lightheadedness or shortness of breath with exertion Resp: Denies: shortness of breath or cough GI: Denies: abdominal pain or vomiting : Denies: painful urination or urinary frequency Musculo: Reports: back pain; Denies: neck pain, extremity pain or extremity swelling Endo: Reports: [facility] Medical History Encounter for screening for COVID-19 ?Z11.52 - Encounter for screening for COVID-19 (ICD-10) Social History Smoking Status: Current every day smoker What tobacco products do you use: cigarettes Do you use any of these nicotine containing products: None Second hand tobacco smoke exposure: No How often do you have a drink containing alcohol: monthly or less AUDIT-C Alcohol total score: 1 Non-prescribed substance use: denies use service: No Exam Narrative: Exam Narrative: Alert and oriented. Seems somewhat busy in stable to as he is playing with the oxygen dial our computer. He however is alert and oriented and cooperative with this examiner. Makes good eye contact. No pressured speech. His EOM is full pupils equal round head is atraumatic. Heart with a regular rate and rhythm and lungs are clear he has really no point tenderness on his exam the area of his discomfort seems to be interscapular as well as across T10. He has what appears to be 2 scratch medina that are horizontal at approximately Ca 8. These are superficial medina. No underlying ecchymosis. At approximately T11 he has 2 well-healed areas that may have been abrasions verses richard. These are small circular areas with darkened skin tissue. They are flat there is no underlying mass fluctuance warmth to the touch or erythema. He does have some stretch medina on his upper arms but otherwise I do not see any significant wasting he is thin here today but does not appear to be cachectic in appearance. Const: Vital Signs, click to edit/add: Vital Signs - 24 hr 01/19/25 13:08 Temperature 97.3 F L Pulse Rate [Pulse Oximeter] 102 H Respiratory Rate 20 Blood Pressure [Ri ght Upper Arm] 128/81 Pulse Oximetry 98 Oxygen Delivery Me thod Room Air Documenting provider has reviewed patient's vital signs: yes Course Course ED Course: Differential diagnosis includes but is not limited to chronic back pain-I did tell Lady I would follow-up on physical therapy referral as well as review his x-rays from SundayJanuary 16. In addition we will make him an appointment so he can establish with primary care in regards to his concerns regarding would wasting of his musculature. I did tell him I would do some blood work in on thus I have ordered a CBC comprehensive panel TSH CRP. I did order urinalysis but T was unable to leave us a sample. Reevaluation(s) Reevaluation #1: TSH within normal limits as is CRP white count electrolytes LFTs. Note patient departed our ER without informing staff and was gone for quite some period of time. He does return and I do discuss these results with him in the triage room. Does appear to have the same heightened energy that he exhibited previously. He is cooperative. Reevaluation #2: Review of x-ray from 01/16 shows no abnormalities and radiological over-read confirms this. Vital Signs Vital signs: Initial Vital Signs Temperature 97.3 F L 01/19/25 13:08 Temperature Source Temporal Artery Scan 01/19/25 13:08 Pulse Rate 102 H 01/19/25 13:08 Respiratory Rate 20 01/19/25 13:08 Blood Pressure 128/81 01/19/25 13:08 Blood Pressure Mean 96 01/19/25 13:08 Pulse Oximetry 98 01/19/25 13:08 Oxygen Delivery Method Room Air 01/19/25 13:08 Vital Signs Temperature 97.3 F L 01/19/25 13:08 Pulse Rate 102 H 01/19/25 13:08 Respiratory Rate 20 01/19/25 13:08 Blood Pressure 128/81 01/19/25 13:08 Pulse Oximetry 98 01/19/25 13:08 Oxygen Delivery Method Room Air 01/19/25 13:08 Temperature 97.3 F L 01/19/25 13:08 Pulse Rate 102 H 01/19/25 13:08 Respiratory Rate 20 01/19/25 13:08 Blood Pressure 128/81 01/19/25 13:08 Pulse Oximetry 98 01/19/25 13:08 Oxygen Delivery Method Room Air 01/19/25 13:08 MDM - Back Pain/Injury MDM Narrative Medical decision making narrative: 1. Chronic back pain-physical therapy did not have a referral for services and thus we recent request today. Would recommend icing to back gentle stretching until Thom is seen. Currently he is telling me his back pain is actually improved. Continue current regimen per 01/16/2025. 2. Muscle wasting-patient notes decreased size of his arms and legs but Alexander no change in strength. Laboratory values today were reassuring including TSH. Patient has a follow-up appointment scheduled with Dr. Moore for establishment of primary care. 3. Disposition-home at this time. Return for worsening symptoms and as needed. Patient instructed to discontinue methamphetamine use which may be contributing to his with weight loss. Medical Records Attestation: I reviewed the patient's medical records. Lab Data Attestation: I reviewed the patient's lab results. Labs: Lab Results 01/19/25 Range/Units 14:00 WBC 7.76 (4.50-11.00) K/uL RBC 4.40 (4.30-5.90) m/uL Hgb 13.9 (13.5-17.5) gm/dL Hct 42.7 (37.0-53.0) % MCV 97 (80-100) fL MCH 32 (26-34) pg MCHC 33 (32-36) gm/dL RDW Coeff of Birdie 11.7 (11.5-15.5) % Plt Count 287 (140-440) K/uL Neut % (Auto) 63.9 (42.0-72.0) % Lymph % (Auto) 23.5 (20-44) % [place] % (Auto) 11.0 (0.0-11.0) % Eos % (Auto) 1.2 (0.0-7.0) % Baso % (Auto) 0.3 (0.0-3.0) % Neut # (Auto) 4.97 (1.7-7.0) K/uL Lymph # (Auto) 1.82 (0.90-2.90) K/uL [place] # (Auto) 0.90 (0.00-0.90) K/UL Eos # (Auto) 0.09 (0.00-0.50) K/uL Baso # (Auto) 0.02 (0.00-0.30) K/uL Abs Immat Gran (auto) 0.01 (0.00-0.30) K/uL Imm/Tot Granulo (auto) 0.1 % Sodium 141 (135-149) mmol/L Potassium 3.9 (3.6-5.1) mmol/L Chloride 104 (96-114) mmol/L Carbon Dioxide 30 (20-32) mmol/L Anion Gap 7 (7-15) mEq/L BUN 19 (5-24) mg/dL Creatinine 1.1 (0.5-1.5) mg/dL Estimated Creat Clear 76.17 Estimated GFR 87 ml/min Glucose 80 (60-115) mg/dL Calcium 9.8 (8.4-10.6) mg/dL Total Bilirubin 0.7 (0.1-1.5) mg/dL AST 28 (12-35) U/L ALT 22 (4-50) U/L Alkaline Phosphatase 49 (40-150) U/L C-Reactive Protein < 0.5 L (0.5-1.0) mg/dL Total Protein 7.3 (6.0-8.3) g/dL Albumin 4.8 (3.3-5.0) g/dL TSH 1.630 (0.270-4.200) uIU/mL Discharge Plan Discharge Clinical Impression: Chronic back pain, Loss of muscle bulk Patient Disposition: Home, Self-Care Condition: Unchanged Additional Instructions: 1. Recommend follow-up with physical therapy. A new referral was faxed to them today and you should receive a phone call for appointment. 2. Establish with primary care. Follow up appointment is scheduled with Dr. Moore at the [facility] on 01/21 with a 4:15pm appointment time. 3. Your labs today show normal hemoglobin white count and platelets. Your electrolytes are normal as are your liver function tests. One of that test called TSH is a thyroid test and that is currently pending. Return as needed. For your back pain consider gentle stretching and icing to the area of discomfort if needed. Prescriptions: No Action prednisone 20 mg tablet 20 mg PO BID Qty: 10 0RF ketorolac 10 mg tablet 10 mg PO Q8H PRN (Reason: pain) 3 Days Qty: 10 0RF Follow Up/Referrals: Jose Persaud MD [Primary Care Provider, Family Practice] Stand Alone Forms: [employer] Info Instructions
[2025-01-19 14:18] LABS: Hematocrit 42.7 % (37.0-53.0); Hemoglobin* 13.9 gm/dL (13.5-17.5); Immature Granulocytes Abs Auto 0.01 K/uL (0.00-0.30); Immature Granulocytes Pct Auto 0.1 %; Lymphocytes Absolute Auto 1.82 K/uL (0.90-2.90); Mean Corpuscular HGB Conc 33 gm/dL (32-36); Mean Corpuscular Hemoglobin 32 pg (26-34); Mean Corpuscular Volume 97 fL (80-100); RDW Coefficient of Variation % 11.7 % (11.5-15.5); Red Blood Count 4.40 m/uL (4.30-5.90); White Blood Count* 7.76 K/uL (4.50-11.00)
[2025-01-19 14:31] LABS: Albumin* 4.8 g/dL (3.3-5.0); Chloride* 104 mmol/L (96-114); Potassium* 3.9 mmol/L (3.6-5.1); Sodium* 141 mmol/L (135-149)
[2025-01-19 14:34] LABS: Alanine Aminotransferase* 22 U/L (4-50); Alkaline Phosphatase* 49 U/L (40-150); Anion Gap 7 mEq/L (7-15); Aspartate Amino Transferase* 28 U/L (12-35); Bilirubin Total* 0.7 mg/dL (0.1-1.5); Blood Urea Nitrogen* 19 mg/dL (5-24); Carbon Dioxide* 30 mmol/L (20-32); Creatinine* 1.1 mg/dL (0.5-1.5); Est. Creatinine Clearance* 76.17; Estimated Glomerular Filt Rate 87 ml/min
[2025-01-19 14:35] LABS: Calcium* 9.8 mg/dL (8.4-10.6); Glucose* 80 mg/dL (60-115); Total Protein* 7.3 g/dL (6.0-8.3)
[2025-01-19 14:38] LABS: Slide Review Reflex No
[2025-01-19 15:03] LABS: TSH With Reflex to FT4* 1.630 uIU/mL (0.270-4.200)
== END 2025-01-19 15:08 | disposition home or self-care (01) ==
PROVIDERS: Emergency Provider Family Medicine; PCP Family Medicine
DX: M54.9 Dorsalgia, unspecified (principal); G89.29 Other chronic pain; M62.50 Muscle wasting and atrophy, not elsewhere classified, unspecified site
CPT/HCPCS: 36415; 80053; 81001; 84443; 85025; 86140; 99283; 99284